=== PATIENT | male | born 1995 | race African-American/Black ===

== ENCOUNTER 2020-11-01 11:27 | Emergency (ER) | payer SELFPAY ==
--- NOTE | 2020-11-01 11:32 | ED.MALEGU ---
HPI - Male Genitourinary General Chief complaint: Urogenital-Male Stated complaint: wants check up Time Seen by Provider: 11/01/20 11:32 Source: patient and RN notes reviewed Mode of arrival: ambulatory Limitations: no limitations History of Present Illness HPI Narrative: 25-year-old male presents to the [facility] wanting a genital checkup. 3 raised bumps to the Distal penis x 3 days after using a condom. Has one raised area that has no signs of infection, No redness or warmth that patient states has been there for months. Related Data Home Medications Medication Instructions Recorded Confirmed No Home Medications 11/01/20 11/01/20 Allergies Allergy/AdvReac Type Severity Reaction Status Date / Time No Known Allergies Allergy Verified 11/01/20 11:34 Review of Systems Review of Systems: Narrative: CONSTITUTIONAL: Denies fever, chills, or sweats. CARDIOVASCULAR: Denies chest pain, palpitations, or edema. RESPIRATORY: Denies cough or dyspnea. GASTROINTESTINAL: Denies abdominal pain, nausea, vomiting, or diarrhea. GENITOURINARY: Denies dysuria or hematuria. SKIN: Reports rash on penis without itching. MUSCULOSKELETAL: Denies back pain, joint pain, or myalgia. NEUROLOGIC: Denies headache, numbness, or weakness. PSYCHIATRIC: Denies anxiety or depression. All other systems reviewed are negative, except as documented in HPI. PMFSH Comments Denies any past medical or surgical history. At the time of my signature, I reviewed and agree with the nursing past medical, surgical, social, and family history. There is no relevant family history pertinent to the patient complaint. Exam Narrative: Exam Narrative: GENERAL: This is a well-nourished, well-developed patient, in no apparent distress. HEAD: normocephalic, atraumatic. NECK: Neck supple, non-tender without lymphadenopathy, masses or thyromegaly. CARDIOVASCULAR: Regular rate and rhythm without murmurs, gallops, or rubs. RESPIRATORY: Clear to auscultation. Breath sounds equal bilaterally. No wheezes, rales, or rhonchi. GASTROINTESTINAL: Abdomen soft, non-tender, nondistended. Bowel sounds are active. No hepato-splenomegaly, or palpable masses. No guarding. SKIN: warm, intact, dry. Patient has 3 raised bumps on his penis distal aspect below the head. Patient also has 1 area that is raised without redness or signs of infection. No penile discharge. No testicular pain. NEURO: awake, alert, and oriented to person, place and time. There were no obvious focal neurologic abnormalities. EXTREMITIES: No joint tenderness, effusion, or edema noted. No calf tenderness. Negative Homans sign bilaterally. BACK: Nontender without deformity. No CVA tenderness. Chaperoned by Jessa POWERS Course Vital Signs Vital signs: Vital Signs Temperature 98.6 F 11/01/20 11:46 Pulse Rate 68 11/01/20 11:46 Respiratory Rate 16 11/01/20 11:46 Blood Pressure 137/75 11/01/20 11:46 Pulse Oximetry 100 11/01/20 11:46 Temperature 98.6 F 11/01/20 11:46 Pulse Rate 68 11/01/20 11:46 Respiratory Rate 16 11/01/20 11:46 Blood Pressure 137/75 11/01/20 11:46 Pulse Oximetry 100 11/01/20 11:46 Reviewed MDM - Male Genitourinary MDM Narrative Medical decision making narrative: Discharge instructions reviewed with patient, as well as provided in writing per nursing staff. The instructions also include specific and strict return/GO TO THE ER as well as f/u information. All questions have been answered, and the patient deny any further questions with discharge and discharge plan. Differential Diagnosis Differential diagnosis: Likely urinary tract infection, urethritis and other (STDs, chlamydia, gonorrhea, trichomonas) Critical Care Time Critical Care Time Critical Care Time: No Discharge Plan Discharge Clinical Impression: Contact dermatitis Qualifiers: Contact dermatitis type: irritant Contact dermatitis trigger: unspecified trigger Qualified Code(s): L24.9 - Irritant c
[2020-11-01 11:46] VITALS: BP 137/75; PULSE 68; RESP 16; TEMP 37; O2SAT 100
== END 2020-11-01 12:02 | disposition home or self-care (01) ==
PROVIDERS: Emergency Provider Nurse Practitioner
DX: L24.9 Irritant contact dermatitis, unspecified cause (principal)
CPT/HCPCS: 87491; 87591; 87661; 99211; 99213; G0463